=== PATIENT | male | born 1955 | race American Indian/Alaskan Native ===

== ENCOUNTER 2016-03-25 23:14 | Emergency (ER) | payer OTHER ==
[~2016-03-25] VITALS: Ht 165.1 cm; Wt 55.8 kg
== END 2016-03-26 00:22 | disposition home or self-care (01) ==
LOC: ED 23:14
DX: S91.331A Puncture wound without foreign body, right foot, initial encounter (principal); W45.8XXA Other foreign body or object entering through skin, initial encounter; Y92.098 Other place in other non-institutional residence as the place of occurrence of the external cause
CPT/HCPCS: 90471; 90715; 96372; 99283; J1885